=== PATIENT | male | born 1940 | race Caucasian/White ===

== ENCOUNTER → 2016-06-10 | Outpatient (CLI) | payer MEDICARE, OTHER ==
[~2016-06-10] VITALS: Ht 172.7 cm; Wt 77.3 kg
[2016-06-10] VITALS (8 sets, daily range): BP systolic 118–149; BP diastolic 60–92; PULSE 58–72; TEMP 97.5
[~2016-06-10] MED LIST: ARICEPT10 MG PO; COZAAR 50MG50 MG/TAB PO; DUO-KAPS1 CAP PO; MOBIC 7.5MG7.5 MG PO; OSCAL 500 TAB500 MG PO; PROTONIX 40MG T40 MG PO; ULTRAM 50MG TAB50 MG PO; ZANTAC 150MG T150 MG PO
== END ==
LOC: COL.RAD 06:05
DX: R41.3 Other amnesia (principal)
CPT/HCPCS: A9548; Q9965